=== PATIENT | female | born 1945 | race Caucasian/White ===

== ENCOUNTER 2023-04-20 11:08 | Outpatient (REF) | payer MEDICARE, OTHER, SELFPAY ==
--- NOTE | ~2023-04-20 | XR_ITS ---
EXAMINATION: XR cervical spine 4V CLINICAL INFORMATION: Disease of spinal cord COMPARISON: None TECHNIQUE: 4 views of the cervical spine were obtained. FINDINGS: The cervical spine is visualized to the level of C7-T1 on the lateral view. Vertebral body alignment is maintained. Status post C4-C5, C5-C6, and C6-C7 discectomy and anterior spinal fusion. No hardware fracture or complication. No instability on flexion extension views. There is osseous fusion of the vertebral bodies across the fused levels. Vertebral body heights are otherwise maintained. Mild multilevel degenerative disc disease at additional levels with multilevel facet arthropathy. No prevertebral soft tissue swelling. XR/XR cervical spine 4V IMPRESSION: 1. Status post C4-C5, C5-C6, and C6-C7 discectomy and anterior spinal fusion. No hardware fracture or complication. No instability on flexion extension views. 2. Mild spondylosis of the cervical spine, as above detailed.
== END 2023-04-20 11:09 | disposition home or self-care (01) ==
LOC: HO.HOSX 11:08
PROVIDERS: PCP Family Medicine; Visit Provider Physician Assistant
DX: G95.9 Disease of spinal cord, unspecified (principal)
CPT/HCPCS: 72050; 99212